=== PATIENT | female | born 1955 | race Caucasian/White ===

== ENCOUNTER 2024-08-19 08:57 | Emergency (ER) | payer BC, SELFPAY ==
[2024-08-19 08:58] VITALS: BP 145/78; BMI 25.0
[2024-08-19 09:13] LABS: % Basophils 0.2 % (0-2); % Eosinophils 0.1 % (0-6); % Immature Granulocytes 0.4 % (0-0.5); % Lymphocytes 5.4 % (20.5-51.1); % Monocytes 3.5 % (1.7-9.3); % Neutrophils 90.4 % (42.2-75.2); Absolute Lymphocytes 0.5 10^3/uL (1.2-3.4); Absolute Monocytes 0.3 10^3/uL (0.1-0.6); Absolute Neutrophils 8.6 10^3/uL (1.4-6.5); Hemoglobin 14.3 g/dL (12.0-16.0); Mean Corpuscular Hgb 31.2 pg (27.0-31.0); Mean Corpuscular Volume 91.7 fL (81.0-99.0); Mean Platelet Volume 9.4 fL (7.4-10.4); Nucleated Red Blood Cells % 0 %; Platelet Count 218 10^3/uL (130-400); Red Blood Cell Count 4.58 10^6/uL (4.20-5.40); Red Cell Dist. Width 13.1 % (11.5-14.5); White Blood Cell Count 9.5 10^3/uL (4.8-10.8)
[2024-08-19] MEDS: VALIUM 2 MG PO (09:33)
[2024-08-19] MEDS: TYLENOL 1000 MG PO (09:33)
[2024-08-19] MEDS: TORADOL 30 MG IV (09:34)
[2024-08-19] MEDS: MORPHINE SULFATE 2 MG IV (09:34)
[2024-08-19 09:36] LABS: ALT (SGPT) 21 U/L (0-35); AST (SGOT) 33 U/L (14-36); Albumin 4.8 g/dl (3.5-5.0); Alkaline Phosphatase 80 U/L (38-126); Blood Urea Nitrogen 18 mg/dl (7-17); Calcium 9.3 mg/dl (8.4-10.2); Carbon Dioxide 25 mmol/L (22-30); Chloride 104 mmol/L (98-107); Estimated Creatinine Clearance 86 ml/min; Glucose 150 mg/dl (70-99); Potassium 3.9 mmol/L (3.5-5.1); Sodium 138 mmol/L (135-145); Total Bilirubin 0.7 mg/dl (0.2-1.3); Total Protein 7.2 g/dl (6.3-8.2); eGFR > 60.00
[2024-08-19 10:05] VITALS: BP 123/72
[2024-08-19 11:00] VITALS: BP 137/74
--- NOTE | 2024-08-19 11:09 | ED.GENMED ---
History of Present Illness
General
Chief Complaint: Fall
Source: patient, spouse and ambulance crew
Exam Limitations: none
Time Seen by Provider: 08/19/24 09:07
Nursing documentation reviewed up to this point in time: agreed with
History of Present Illness
History of Present Illness:
Patient presents to ED secondary to persistent back pain after a fall while brushing her teeth at local hotel last night. Patient's spouse was nearby, heard a loud thump and attends the patient immediately. Patient was on the floor, awake,
complaining of back pain. Patient was able to be assisted back up and walked to her bed. Patient states that she had difficult time sleeping secondary to continual pain. Patient did not lose consciousness. Denies head injury. Denies headache.
Denies neck pain. Denies nausea or vomiting. Denies loss of sensation or weakness. Denies urinary or bowel incontinence. Patient otherwise is healthy without any significant medical history. Patient does not take any blood thinning medications.
Review of Systems
Review of Systems
Allergies reviewed?: Yes
All Other Systems: ROS reviewed and negative except as documented in HPI and ROS
Constitutional: Reports no symptoms
Respiratory: Reports no symptoms; Denies trouble breathing
Cardiac: Reports no symptoms; Denies chest pain, palpitations or syncope
ABD/GI: Reports no symptoms; Denies nausea or vomiting
: Reports no symptoms; Denies incontinence
Musculoskeletal: Reports back pain
Skin: Reports no symptoms
Neurological: Reports no symptoms; Denies dizzy, headache, weakness or numbness
Phy Exam
Physical Exam
Physical Exam:
Physical Exam
General: no apparent distress, not acutely ill. afebrile
Head: nc/at. eomi
Neck: supple. normal range of motion. no midline tenderness.
Heart: s1/s2 regular rate and rhythm, no murmur. equal radial pulses.
Lungs: no acute respiratory distress. clear bilaterally. no chest wall tenderness.
Abdomen: normal bowel sounds. not tender.
Back: no midline tenderness. mild lower back tenderness to palpation at level of L2-3. negative straight leg raise test.
Neuro: alert and oriented. no focal neurological deficits
Skin: no rash
Psychiatric: well kept. interactive and cooperative
Extremities: no edema. no calf tenderness.
Course
Orders/Labs/Results
Orders:
Orders
08/19/24 09:07
Complete Blood Count/With Diff Urgent
Comprehensive Metabolic Panel Urgent
08/19/24 09:29
Acetaminophen [Tylenol] 1,000 mg PO NOW STA
Diazepam [Valium] 2 mg PO NOW STA
Ketorolac [Toradol] 30 mg IV NOW STA
Morphine Sulfate 2 mg IV NOW STA
08/19/24 09:30
CR Lumbar Spine Comp Min 4 Vw* Urgent
Comment:
Reason For Exam: lower back pain after fall
08/19/24 11:12
HYDROmorphone [Dilaudid] 0.5 mg IV NOW STA
08/19/24 12:36
Ondansetron Injectable [Zofran] 4 mg IV NOW STA
08/19/24 12:37
Ondansetron Injectable [Zofran] 4 mg .ROUTE .STK-MED ONE
08/19/24 13:13
Oxycodone/Acetaminophen [Percocet 5/325] 1 tablet PO NOW STA
Abnormal Lab Results
08/19/24
09:07
MCH 31.2 H pg
(27.0-31.0)
Absolute Neuts (auto) 8.6 H 10^3/uL
(1.4-6.5)
Absolute Lymphs (auto) 0.5 L 10^3/uL
(1.2-3.4)
Neutrophils % 90.4 H %
(42.2-75.2)
Lymphocytes % 5.4 L %
(20.5-51.1)
BUN 18 H mg/dl
(7-17)
Glucose 150 H mg/dl
(70-99)
08/19/24 09:07
08/19/24 09:07
Vital Signs
Initial and Last Documented VS:
Initial Vital Signs
Temp Pulse Resp BP Pulse Ox
98.5 F 104 16 145/78 99
08/19/24 08:58 08/19/24 08:58 08/19/24 08:58 08/19/24 08:58 08/19/24 08:58
Last Documented Vital Signs
Temp Pulse Resp BP Pulse Ox
98.5 F 96 19 121/80 95
08/19/24 08:58 08/19/24 12:17 08/19/24 12:17 08/19/24 13:18 08/19/24 12:15
MDM/Problems Addressed
MDM/Problems Addressed:
Lumbar spine x-ray reviewed and discussed with patient, specifically T12 compression fracture. Patient otherwise remains neurologically intact. Patient given treatment with multiple pain medications, with significant improvement symptoms. Patient
is able to stand up independently and able to ambulate with stable gait. Patient given copy of x-ray, and advised to follow-up with her primary care physician and/or orthopedic surgeon for reevaluation, as an outpatient. Patient will be given
prescription for pain medications, including narcotic prescription paper, as patient is visiting from [place].
*Critical Care Note
Total Time (30-74mins, 75-104mins- exclusive of procedures): Not Applicable
ED Attending Note
-
Portions of this chart may have been created with voice recognition software.� Occasional wrong word or��sound alike� substitutions may have occurred due to the inherent limitations of voice recognition software.
Discharge Plan
Departure
Patient Disposition: Home (Routine Discharge)
Date of Disposition: 08/19/24
Time of Disposition: 13:09
Patient with high blood pressure during this ER visit?: Yes
Condition: Good
Discharge Problem:
Vertebral compression fracture
Instructions: Vertebral Compression Fracture ED
Prescriptions:
New
cyclobenzaprine 10 mg tablet
10 mg PO TIDPRN PRN (Reason: muscle spasm) Qty: 14 0RF
ondansetron 4 mg Tablet,Disintegrating
4 mg PO TIDPRN PRN (Reason: nausea/vomiting) Qty: 12 0RF
Referrals:
UNKNOWN - PT DOES,NOT KNOW [Family Provider] -
Activity Restrictions/Additional Instructions:
As discussed, please follow-up with your primary care physician and/or orthopedic surgeon for further evaluation and treatment. In ED, x-ray revealed compression fracture of your thoracic spine at the level of T12.
Interventions
Interventions:
*Risk Screen - Suicide Last Done: 08/19/24 09:04
*General Assessment Last Done: 08/19/24 09:04
*Neglect/Abuse Screening Last Done: 08/19/24 09:04
ED- Fall Risk Assessment Last Done: 08/19/24 13:26
*ED COVID-19 Vaccine History Last Done: 08/19/24 09:04
*Nursing Disposition Last Done: 08/19/24 13:26
ED-Musculoskeletal Assessment Last Done: 08/19/24 09:11
ED- Neurological Assessment Last Done: 08/19/24 09:11
ED-Skin Assessment Last Done: 08/19/24 09:11
Discharge Date and Time
Discharge Date/Time: 08/19/24 13:26
Print Language: FRISIAN
[2024-08-19] MEDS: DILAUDID 0.5 MG IV (11:16)
[2024-08-19 12:00] VITALS: BP 142/83
[2024-08-19] MEDS: ZOFRAN 4 MG IV (12:37)
[2024-08-19] MEDS: PERCOCET 5/325 1 TABLET PO (13:16)
[2024-08-19 13:18] VITALS: BP 121/80
== END 2024-08-19 13:26 | disposition home or self-care (01) ==
LOC: EMR 08:57
PROVIDERS: EMERGENCY PHYSICIAN Emergency Medicine
DX: S22.089A Unspecified fracture of T11-T12 vertebra, initial encounter for closed fracture (principal); W19.XXXA Unspecified fall, initial encounter
CPT/HCPCS: 99283; 96374; 96375; 72110; 80053; 85025